=== PATIENT | male | born 1985 | race Caucasian/White ===

== ENCOUNTER 2020-10-21 15:59 | Outpatient (CLI) | payer OTHER | END 2020-10-21 16:00 | disposition home or self-care (01) | LOC: COV 15:59 | PROVIDERS: ATTEND Family Medicine | DX: R05 Cough (principal); R06.02 Shortness of breath; M79.10 Myalgia, unspecified site; R53.83 Other fatigue; R07.0 Pain in throat; Z20.822 Contact with and (suspected) exposure to COVID-19 ==